=== PATIENT | male | born 1970 | race Caucasian/White ===

== ENCOUNTER 2020-06-12 13:52 | Inpatient (IN) | payer OTHER ==
[~2020-06-12] VITALS: Ht 182.9 cm; Wt 60.8 kg
[~2020-06-12 13:52] MED LIST: AIRDUO DIGIHAL1 EAC1 INH; ALBUTEROL1.25 MG/3 INH; ALBUTEROL2.5 MG/3 M INH; ATORVASTATIN CA40 MG PO; AUGMENTIN 875-1 EACH PO; AZITHROMYCIN500 MG PO; BROVANA15 MCG/2 M NEB; BUDESONIDE-FO10.2 G1 IH; CEFDINIR300 MG PO; CLEOCIN HCL300 MG PO; FLOVENT 220.1 GM/INH INH; FLUZONE QU60 MCG/015 IM; IPRAT-ALBUT 0.5-3 ML INH; IPRAT-ALBUT 0.5-3 ML NEB; LEVAQUIN500 MG PO; LEVAQUIN750 MG PO; LOPRESSOR 25 MG25 MG PO; MEDROL DOSEPAK 24 MG PO; MEDROL TAB 4 MG4 MG PO; MEDROL4 MG PO; MUPIROCIN30 GM TOP; NICOTINE PATCH1 EAC2 TD; OMNICEF 300 MG300 MG PO; PERCOCET 5/325 T1 EA PO; PREDNISONE 10 M10 MG GT; PREDNISONE 50 M50 MG PO; PREDNISONE20 MG PO; PROAIR DIGIHAL90 MCG INH; PROAIR HFA8.5 GM INH; PROVENTIL HFA6.7 GM INH; SPIRIVA HANDIH18 MCG INH; SPIRIVA RESPIMAT4 GM INH; SYMBICORT 160-1 INHA INH; TESSALON PERLE100 MG PO; TYLENOL EXTRA500 MG PO; ULTRAM50 MG PO; VENTOLIN HFA 66.7 GM INH; VENTOLIN/PROVE0.5 ML INH; VIBRAMYCIN 100100 MG PO; VIBRAMYCIN100 MG PO; ZITHROMAX250 MG PO; ZITHROMAX500 MG PO; ZOLOFT50 MG PO; [UNRECOGNIZED DRUG - OTHER] MC
[2020-06-12 15:30] LABS: BUN/CREATININE RATIO 10 (0-10)
[2020-06-12 15:57] LABS: HEMOGLOBIN 15.1 gm/dl (14.0-17.5); RED BLOOD COUNT 4.96 M/UL (4.20-5.50); WHITE BLOOD COUNT 12.7 K/UL (4.5-11.0)
[2020-06-13 02:23] LABS: RED BLOOD COUNT 4.93 M/UL (4.20-5.50)
[2020-06-13 02:28] LABS: WHITE BLOOD COUNT 8.9 K/UL (4.5-11.0)
[2020-06-13 03:13] LABS: BUN/CREATININE RATIO 14 (0-10)
--- NOTE | 2020-06-13 12:11 | NUR ---
SPOKE WITH MD SALAS. HUY TO SEND PATIENT TO MRI WITHOUT TELEMETRY
[2020-06-14 01:52] LABS: ACINETOBACTER BAUMANNII Not Detected (Negative); CANDIDA ALBICANS Not Detected (Negative); CANDIDA KRUSEI Not Detected (Negative); CANDIDA TROPICALIS Not Detected (Negative); ENTEROCOCCUS Not Detected (Negative); ESCHERICHIA COLI Not Detected (Negative); HAEMOPHILUS INFLUENZAE Not Detected (Negative); KLEBSIELLA OXYTOCA Not Detected (Negative); KLEBSIELLA PNEUMONIAE Not Detected (Negative); KPC-CARBAPENEM-RESISTANCE GENE Not Detected (Negative); PROTEUS Not Detected (Negative); PSEUDOMONAS AERUGINOSA Not Detected (Negative); SERRATIA MARCESANS Not Detected (Negative); STAPHYLOCOCCUS AUREUS Not Detected (Negative); STREP AGALACTIAE (GROUP B) Not Detected (Negative); STREP PYOGENES (GROUP A) Not Detected (Negative); STREPTOCOCCUS Not Detected (Negative); vanA/B (VANCOMYCIN RESIST GENE Not Detected (Negative)
[2020-06-14 01:55] LABS: STAPHYLOCOCCUS DETECTED (Negative); mecA (METHICILLIN RESIST GENE DETECTED (Negative)
[2020-06-14 03:44] LABS: HEMOGLOBIN 13.8 gm/dl (14.0-17.5); RED BLOOD COUNT 4.57 M/UL (4.20-5.50)
[2020-06-14 03:46] LABS: WHITE BLOOD COUNT 16.7 K/UL (4.5-11.0)
[2020-06-14 04:15] LABS: BUN/CREATININE RATIO 28 (0-10)
[2020-06-14] MEDS ORDERED: DOXYCYCLINE HY100 M2 PO (08:41)
[2020-06-14] MEDS ORDERED: PREDNISONE5 MG PO (08:41)
[2020-06-14] MEDS ORDERED: PROTONIX 40 MG40 M1 PO (08:41)
[2020-06-15] MEDS ORDERED: ATIVAN0.5 MG PO (10:03)
[2020-07-24] MEDS ORDERED: IPRAT-ALBUT 0.5-3 ML NEB (09:30)
[2020-07-24] MEDS ORDERED: BROVANA15 MCG/2 M NEB (09:30)
[2020-07-24] MEDS ORDERED: PREDNISONE 10 M10 MG PO (09:30)
[2020-07-24] MEDS ORDERED: SYMBICORT 160-1 INHA INH (14:26)
[2020-07-24] MEDS ORDERED: PROAIR HFA8.5 GM INH (14:26)
== END 2020-06-15 16:40 | disposition home or self-care (01) | DRG 189 ==
LOC: ER1 13:52 → PROG CARE 16:40 → CDU 16:40 → PROG CARE 22:27
PROVIDERS: Emergency Medicine; ADMIT Internal Medicine
PROC: B24BZZZ Ultrasonography of Heart with Aorta (ICD-10-PCS; principal; 2020-06-13)
DX: J96.01 Acute respiratory failure with hypoxia (principal); G93.41 Metabolic encephalopathy; J44.1 Chronic obstructive pulmonary disease with (acute) exacerbation; F17.200 Nicotine dependence, unspecified, uncomplicated; J96.02 Acute respiratory failure with hypercapnia; Z20.822 Contact with and (suspected) exposure to COVID-19; Z98.890 Other specified postprocedural states; Z82.5 Family history of asthma and other chronic lower respiratory diseases; Z88.8 Allergy status to other drugs, medicaments and biological substances
CPT/HCPCS: ECHO; 36415; 36600; 51702; 70450; 70551; 71045; 80053; 80307; 81001; 82140; 82550; 82553; 82803; 83605; 83690; 83735; 83874; 83880; 84100; 84439; 84443; 84484; 85025; 85610; 85730; 86140; 87040; 87077; 87086; 87150; 87186; 93005; 93306; 93880; 94640; 94660; 94664; 94760; 96374; 96375; 97161; 97165; 99285; C9113; G0480; J0456; J0696; J1650; J2185; J2930; J3370; J7070; U0002

== ENCOUNTER 2020-07-13 23:08 | Emergency (ER) | payer OTHER ==
[~2020-07-13 23:08] MED LIST changes: +ATIVAN0.5 MG PO; +DOXYCYCLINE HY100 M2 PO; +PREDNISONE5 MG PO; +PROTONIX 40 MG40 M1 PO
[2020-07-14 01:31] LABS: HEMOGLOBIN 14.3 gm/dl (14.0-17.5); RED BLOOD COUNT 4.78 M/UL (4.20-5.50); WHITE BLOOD COUNT 10.3 K/UL (4.5-11.0)
[2020-07-14 01:46] LABS: BUN/CREATININE RATIO 24 (0-10)
[2020-07-14] MEDS ORDERED: PREDNISONE 10 M10 MG PO (03:27)
== END 2020-07-14 04:30 | disposition home or self-care (01) ==
LOC: ER1 23:08
PROVIDERS: Physician Assistant
DX: J44.1 Chronic obstructive pulmonary disease with (acute) exacerbation (principal); Z88.6 Allergy status to analgesic agent; F17.210 Nicotine dependence, cigarettes, uncomplicated; Z20.822 Contact with and (suspected) exposure to COVID-19
CPT/HCPCS: 36600; 71045; 80053; 82550; 82553; 82803; 83605; 83874; 84484; 85025; 87040; 93005; 94760; 99285; U0002

== ENCOUNTER 2020-07-22 15:03 | Inpatient (IN) | payer OTHER ==
[~2020-07-22] VITALS: Ht 182.9 cm; Wt 64.4 kg
[~2020-07-22 15:03] MED LIST changes: +PREDNISONE 10 M10 MG PO
[2020-07-22 17:19] LABS: HEMOGLOBIN 15.1 gm/dl (14.0-17.5); RED BLOOD COUNT 4.85 M/UL (4.20-5.50); WHITE BLOOD COUNT 9.6 K/UL (4.5-11.0)
[2020-07-22 17:54] LABS: BUN/CREATININE RATIO 14 (0-10)
[2020-07-23 02:58] LABS: HEMOGLOBIN 13.5 gm/dl (14.0-17.5); RED BLOOD COUNT 4.42 M/UL (4.20-5.50)
[2020-07-23 03:00] LABS: WHITE BLOOD COUNT 6.7 K/UL (4.5-11.0)
[2020-07-23 03:19] LABS: BUN/CREATININE RATIO 16 (0-10)
[2020-07-23] MEDS ORDERED: SERTRALINE HCL50 MG PO (12:39)
[2020-07-23] MEDS ORDERED: SYMBICORT 160-1 INHA INH (12:44)
[2020-07-24] MEDS ORDERED: BROVANA15 MCG/2 M NEB (09:30)
[2020-07-24] MEDS ORDERED: PREDNISONE 10 M10 MG PO (09:30)
[2020-07-24] MEDS ORDERED: IPRAT-ALBUT 0.5-3 ML NEB (09:30)
[2020-07-24] MEDS ORDERED: PROAIR HFA8.5 GM INH (14:26)
[2020-07-24] MEDS ORDERED: SYMBICORT 160-1 INHA INH (14:26)
== END 2020-07-24 16:14 | disposition home or self-care (01) | DRG 189 ==
LOC: ER1 15:03 → M/S 18:43 → CDU 18:43 → M/S 19:37
PROVIDERS: Emergency Medicine; ADMIT Internal Medicine
DX: J96.21 Acute and chronic respiratory failure with hypoxia (principal); G93.41 Metabolic encephalopathy; J44.1 Chronic obstructive pulmonary disease with (acute) exacerbation; Z20.822 Contact with and (suspected) exposure to COVID-19; J96.22 Acute and chronic respiratory failure with hypercapnia; F17.210 Nicotine dependence, cigarettes, uncomplicated; Z99.81 Dependence on supplemental oxygen; Z87.81 Personal history of (healed) traumatic fracture; Z82.5 Family history of asthma and other chronic lower respiratory diseases; Z88.8 Allergy status to other drugs, medicaments and biological substances; Z88.6 Allergy status to analgesic agent
CPT/HCPCS: 36415; 36600; 71045; 80048; 80053; 81001; 82550; 82553; 82803; 83605; 83690; 83874; 83880; 84484; 85025; 87040; 93005; 94640; 94664; 94760; 96374; 96375; 99285; J0696; J1650; J2920; J2930; U0002

== ENCOUNTER 2020-08-06 08:57 | Inpatient (IN) | payer OTHER ==
[~2020-08-06] VITALS: Ht 182.9 cm; Wt 64.0 kg
[~2020-08-06 08:57] MED LIST changes: +SERTRALINE HCL50 MG PO
[2020-08-06 10:08] LABS: HEMOGLOBIN 16.1 gm/dl (14.0-17.5); RED BLOOD COUNT 5.27 M/UL (4.20-5.50); WHITE BLOOD COUNT 15.9 K/UL (4.5-11.0)
[2020-08-06 13:19] LABS: BUN/CREATININE RATIO 17 (0-10)
[2020-08-07 03:04] LABS: BORDETELLA PARAPERTUSSIS Not Detected (Not Detectd); BORDETELLA PERTUSSIS Not Detected (Not Detectd); CHLAMYDIA PNEUMONIAE Not Detected (Not Detectd); CORONAVIRUS HKU1 Not Detected (Not Detectd); CORONAVIRUS NL63 Not Detected (Not Detectd); CORONAVIRUS OC43 Not Detected (Not Detectd); CORONOAVIRUS 229E Not Detected (Not Detectd); HUMAN METAPNEUMOVIRUS Not Detected (Not Detectd); HUMAN RHINOVIRUS/ENTEROVIRUS Not Detected (Not Detectd); INFLUENZA A Not Detected (Not Detectd); INFLUENZA B Not Detected (Not Detectd); MYCOPLASMA PNEUMONIAE Not Detected (Not Detectd); PARAINFLUENZA VIRUS 1 Not Detected (Not Detectd); PARAINFLUENZA VIRUS 2 Not Detected (Not Detectd); PARAINFLUENZA VIRUS 3 Not Detected (Not Detectd); PARAINFLUENZA VIRUS 4 Not Detected (Not Detectd); RESPIRATORY SYNCYTIAL VIRUS Not Detected (Not Detectd)
[2020-08-07 03:14] LABS: HEMOGLOBIN 12.8 gm/dl (14.0-17.5); RED BLOOD COUNT 4.35 M/UL (4.20-5.50); WHITE BLOOD COUNT 10.7 K/UL (4.5-11.0)
[2020-08-07 03:45] LABS: BUN/CREATININE RATIO 23 (0-10)
[2020-08-07 04:03] LABS: SARS-CoV-2 NOT DETECTED (Not Detectd)
--- NOTE | 2020-08-07 12:49 | NUR ---
08/07/20 1250 MD AWARE OF BOTH LACTIC ACIDS BEING ELEVATED
[2020-08-08 10:06] LABS: HEMOGLOBIN 12.2 gm/dl (14.0-17.5); RED BLOOD COUNT 3.94 M/UL (4.20-5.50)
[2020-08-08 10:13] LABS: WHITE BLOOD COUNT 18.9 K/UL (4.5-11.0)
--- NOTE | 2020-08-08 10:19 | NUR ---
08/08/20 1015 AWARE OF LACTIC ACID RESULTS
[2020-08-08 10:54] LABS: BUN/CREATININE RATIO 16 (0-10)
--- NOTE | 2020-08-08 14:51 | NUR ---
08/08/20 1440 AWARE OF ABNORMAL LACTIC ACID
[2020-08-09 03:58] LABS: HEMOGLOBIN 12.6 gm/dl (14.0-17.5); RED BLOOD COUNT 4.07 M/UL (4.20-5.50)
[2020-08-09 04:20] LABS: BUN/CREATININE RATIO 16 (0-10)
[2020-08-09] MEDS ORDERED: IPRAT-ALBUT 0.5-3 ML NEB (10:13)
--- NOTE | 2020-08-09 17:54 | NUR ---
08/09/20 17:54 SPOKE WITH YOLI ON PHONE, EXPLAINED TO HER THAT RENZO WAS READY FOR DISCHARGE TO [facility] AND SOMEONE NEEDED TO PICK HIM UP. HE DOES HAVE A OXYGEN TANK THAT JUDSON RUBY BROUGHT FOR TRAVEL. SHE STATED SHE WAS IN [place]. SHE WOULD TRY TO GET A HOLD OF SOMEONE TO PICK HIM UP. Nisreen BROWN
--- NOTE | 2020-08-09 18:56 | NUR ---
Notified Dr. Garcia that patient stated he would not have a ride for tonight as his was in [place]. I asked him if he had any other options for a ride, but he stated his had to be home for him to go home. Dr. Garcia stated this was fine and he would re-evaluate the situation in the morning.
--- NOTE | 2020-08-10 16:28 | NUR ---
PT HAS STOOD AND WALKED AT BEDSIDE WITH NO ASSISTANCE. FAMILY HAS BEEN CONTACTED AND DAUGHTER (OLIVER) IS AT PT HOME WAITIN GHIS ARRIVAL. DAUGHTER HAS BEEN EDUCATED ABOUT THE IMPORTANCE OF BEING PRESENT TO HELP THE PT OUT OF THE CAB. DAUGHTER AND PT UNDERSTAND THE DANGERS AND HAVE AGREED TO PROCEED WITH THE PT LEAVING AND GOING HOME VIA [facility]. OXYGEN HAD BEEN DELIVERED AND GUY AND MD ARE AWARE.
== END 2020-08-10 18:03 | disposition home or self-care (01) | DRG 190 ==
LOC: ER1 08:57 → CDU 12:39 → M/S 12:39
PROVIDERS: Emergency Medicine; Physician Assistant; ADMIT Family Medicine
DX: J44.1 Chronic obstructive pulmonary disease with (acute) exacerbation (principal); J96.01 Acute respiratory failure with hypoxia; G93.49 Other encephalopathy; E87.2 Acidosis; D72.829 Elevated white blood cell count, unspecified; T38.0X5A Adverse effect of glucocorticoids and synthetic analogues, initial encounter; K42.9 Umbilical hernia without obstruction or gangrene; Z20.822 Contact with and (suspected) exposure to COVID-19; Z96.641 Presence of right artificial hip joint; Y92.89 Other specified places as the place of occurrence of the external cause; Z91.14 Patient's other noncompliance with medication regimen; Z88.6 Allergy status to analgesic agent; Z88.8 Allergy status to other drugs, medicaments and biological substances; Z72.0 Tobacco use; Z82.5 Family history of asthma and other chronic lower respiratory diseases
CPT/HCPCS: 0240U; 36415; 36600; 71045; 80048; 80053; 80202; 80307; 81001; 82140; 82550; 82553; 82803; 83605; 84484; 85025; 87040; 87086; 87633; 94640; 94664; 94760; 96374; 99285; J2543; J2920; J2930; J3370; J7030; J7070

== ENCOUNTER 2020-09-23 07:10 | Inpatient (IN) | payer OTHER ==
[~2020-09-23] VITALS: Ht 182.9 cm; Wt 77.1 kg
[2020-09-23 08:23] LABS: HEMOGLOBIN 13.9 gm/dl (14.0-17.5); RED BLOOD COUNT 4.42 M/UL (4.20-5.50)
[2020-09-23 08:51] LABS: BUN/CREATININE RATIO 15 (0-10)
[2020-09-23] MEDS ORDERED: TYLENOL325 MG PO (16:16)
[2020-09-24 06:12] LABS: HEMOGLOBIN 12.8 gm/dl (14.0-17.5); RED BLOOD COUNT 4.16 M/UL (4.20-5.50); WHITE BLOOD COUNT 10.1 K/UL (4.5-11.0)
[2020-09-24 06:31] LABS: BUN/CREATININE RATIO 19 (0-10)
[2020-09-24] MEDS ORDERED: IPRAT-ALBUT 0.5-3 ML NEB (10:14)
[2020-09-24] MEDS ORDERED: SYMBICORT 160-1 INHA INH (10:14)
[2020-09-24] MEDS ORDERED: BROVANA15 MCG/2 M NEB (10:14)
[2020-09-24] MEDS ORDERED: PROAIR HFA8.5 GM INH (10:14)
[2020-09-25 04:39] LABS: HEMOGLOBIN 12.4 gm/dl (14.0-17.5); RED BLOOD COUNT 4.12 M/UL (4.20-5.50); WHITE BLOOD COUNT 10.4 K/UL (4.5-11.0)
[2020-09-25 04:53] LABS: BUN/CREATININE RATIO 17 (0-10)
--- NOTE | 2020-09-25 21:03 | NUR ---
SPOKE WITH PT'S YOLI. NOTIFIED HER THAT PT HAD BEEN DISCHARGED FROM THE HOSPITAL. YOLI STATED THAT WHEN HER DAUGHTER GOT OFF WORK SHE WOULD COME TO THE HOSPITAL AND GET HIM.
== END 2020-09-25 22:09 | disposition home or self-care (01) | DRG 193 ==
LOC: ER1 07:10 → MED SURG 4 13:47 → CDU 13:47 → MED SURG 4 14:12
PROVIDERS: Emergency Medicine; Physician Assistant Medical; ADMIT Internal Medicine
DX: J18.9 Pneumonia, unspecified organism (principal); J96.22 Acute and chronic respiratory failure with hypercapnia; J96.21 Acute and chronic respiratory failure with hypoxia; J44.0 Chronic obstructive pulmonary disease with (acute) lower respiratory infection; J44.1 Chronic obstructive pulmonary disease with (acute) exacerbation; K42.9 Umbilical hernia without obstruction or gangrene; E87.6 Hypokalemia; F17.210 Nicotine dependence, cigarettes, uncomplicated; Z20.822 Contact with and (suspected) exposure to COVID-19; Z99.81 Dependence on supplemental oxygen; Z91.19 Patient's noncompliance with other medical treatment and regimen; Z88.6 Allergy status to analgesic agent; Z79.51 Long term (current) use of inhaled steroids; Z79.899 Other long term (current) drug therapy; Z82.5 Family history of asthma and other chronic lower respiratory diseases
CPT/HCPCS: 0240U; 36415; 36600; 71045; 80048; 80053; 82550; 82553; 82803; 83605; 83690; 83735; 84484; 85025; 85027; 87040; 94640; 94664; 94760; 96374; 99285; J0456; J0696; J7030

== ENCOUNTER 2020-10-13 22:10 | Emergency (ER) | payer OTHER ==
[~2020-10-13 22:10] MED LIST changes: +TYLENOL325 MG PO
[2020-10-14 04:31] LABS: HEMOGLOBIN 14.9 gm/dl (14.0-17.5); RED BLOOD COUNT 4.73 M/UL (4.20-5.50); WHITE BLOOD COUNT 9.3 K/UL (4.5-11.0)
[2020-10-14 05:05] LABS: BUN/CREATININE RATIO 10 (0-10)
[2020-10-14] MEDS ORDERED: AZITHROMYCIN250 MG PO (05:47)
== END 2020-10-14 11:00 | disposition home or self-care (01) ==
LOC: ER1 22:10
PROVIDERS: Family Medicine
DX: J44.0 Chronic obstructive pulmonary disease with (acute) lower respiratory infection (principal); J18.9 Pneumonia, unspecified organism; F17.200 Nicotine dependence, unspecified, uncomplicated; Z20.822 Contact with and (suspected) exposure to COVID-19
CPT/HCPCS: 71045; 80048; 85025; 93005; 96372; 99284; J0696; U0002

== ENCOUNTER 2020-11-28 11:31 | Emergency (ER) | payer OTHER ==
[~2020-11-28 11:31] MED LIST changes: +AZITHROMYCIN250 MG PO
[2020-11-28 12:29] LABS: HEMOGLOBIN 14.4 gm/dl (14.0-17.5); RED BLOOD COUNT 4.51 M/UL (4.20-5.50)
[2020-11-28 12:54] LABS: BUN/CREATININE RATIO 17 (0-10)
[2020-11-28] MEDS ORDERED: AZITHROMYCIN250 MG PO (16:45)
[2020-11-28] MEDS ORDERED: ALBUTEROL2.5 MG/3 M INH (16:45)
[2020-11-28] MEDS ORDERED: MEDROL DOSEPAK 24 MG PO (16:45)
== END 2020-11-28 17:50 | disposition home or self-care (01) ==
LOC: ER1 11:31
PROVIDERS: Emergency Medicine
DX: J44.1 Chronic obstructive pulmonary disease with (acute) exacerbation (principal); E87.6 Hypokalemia; F17.200 Nicotine dependence, unspecified, uncomplicated; Z88.5 Allergy status to narcotic agent; Z88.6 Allergy status to analgesic agent; Z20.822 Contact with and (suspected) exposure to COVID-19
CPT/HCPCS: 36600; 71045; 80053; 82550; 82553; 82803; 83605; 83874; 83880; 84484; 85025; 85379; 87040; 93005; 94640; 94664; 96374; 99285; J2930; U0002

== ENCOUNTER 2021-05-18 19:24 | Emergency (ER) | payer OTHER ==
[2021-05-18 20:36] LABS: HEMOGLOBIN 13.5 gm/dl (14.0-17.5); RED BLOOD COUNT 4.37 M/UL (4.20-5.50); WHITE BLOOD COUNT 10.9 K/UL (4.5-11.0)
[2021-05-18 21:07] LABS: BUN/CREATININE RATIO 22 (0-10)
[2021-05-18] MEDS ORDERED: PREDNISONE 50 M50 MG PO (21:36)
== END 2021-05-18 22:11 | disposition home or self-care (01) ==
LOC: ER1 19:24
PROVIDERS: Physician Assistant
DX: J44.9 Chronic obstructive pulmonary disease, unspecified (principal); F17.200 Nicotine dependence, unspecified, uncomplicated
CPT/HCPCS: 71045; 80053; 82550; 82553; 84484; 85025; 93005; 94664; 94760; 96374; 99285; J2930

== ENCOUNTER 2021-05-30 20:12 | Emergency (ER) | payer OTHER ==
[2021-05-30 21:13] LABS: HEMOGLOBIN 11.8 gm/dl (14.0-17.5); RED BLOOD COUNT 3.85 M/UL (4.20-5.50); WHITE BLOOD COUNT 10.2 K/UL (4.5-11.0)
[2021-05-30 21:34] LABS: BUN/CREATININE RATIO 15 (0-10)
[2021-05-30] MEDS ORDERED: DOXYCYCLINE MO100 MG PO (22:11)
== END 2021-05-31 05:32 | disposition home or self-care (01) ==
LOC: ER1 20:12
PROVIDERS: Emergency Medicine
DX: J44.0 Chronic obstructive pulmonary disease with (acute) lower respiratory infection (principal); J18.1 Lobar pneumonia, unspecified organism; R60.1 Generalized edema; F17.200 Nicotine dependence, unspecified, uncomplicated
CPT/HCPCS: 71045; 80053; 82550; 82553; 83880; 84484; 85025; 93005; 94664; 96365; 96375; 99285; J0696; J2930

== ENCOUNTER 2021-05-31 06:05 | Emergency (ER) | payer OTHER ==
[~2021-05-31 06:05] MED LIST changes: +DOXYCYCLINE MO100 MG PO
== END 2021-05-31 10:25 | disposition home or self-care (01) ==
LOC: ER1 06:05
DX: J44.9 Chronic obstructive pulmonary disease, unspecified (principal); F17.200 Nicotine dependence, unspecified, uncomplicated
CPT/HCPCS: 93005; 94664; 99285

== ENCOUNTER 2021-06-15 01:49 | Inpatient (IN) | payer OTHER ==
[~2021-06-15] VITALS: Ht 182.9 cm; Wt 72.6 kg
[2021-06-15 02:46] LABS: RED BLOOD COUNT 4.54 M/UL (4.20-5.50); WHITE BLOOD COUNT 12.6 K/UL (4.5-11.0)
[2021-06-15 03:05] LABS: BUN/CREATININE RATIO 18 (0-10)
[2021-06-15] MEDS ORDERED: DOXYCYCLINE HY100 MG PO (04:29)
[2021-06-15 06:45] LABS: BORDETELLA PARAPERTUSSIS Not Detected (Not Detectd); BORDETELLA PERTUSSIS Not Detected (Not Detectd); CHLAMYDIA PNEUMONIAE Not Detected (Not Detectd); CORONAVIRUS HKU1 Not Detected (Not Detectd); CORONAVIRUS NL63 Not Detected (Not Detectd); CORONAVIRUS OC43 Not Detected (Not Detectd); CORONOAVIRUS 229E Not Detected (Not Detectd); HUMAN METAPNEUMOVIRUS Not Detected (Not Detectd); HUMAN RHINOVIRUS/ENTEROVIRUS Not Detected (Not Detectd); INFLUENZA A Not Detected (Not Detectd); INFLUENZA B Not Detected (Not Detectd); MYCOPLASMA PNEUMONIAE Not Detected (Not Detectd); PARAINFLUENZA VIRUS 1 Not Detected (Not Detectd); PARAINFLUENZA VIRUS 2 Not Detected (Not Detectd); PARAINFLUENZA VIRUS 3 Not Detected (Not Detectd); PARAINFLUENZA VIRUS 4 Not Detected (Not Detectd); RESPIRATORY SYNCYTIAL VIRUS Not Detected (Not Detectd)
[2021-06-15] MEDS ORDERED: LORAZEPAM0.5 MG PO (09:25)
[2021-06-15] MEDS ORDERED: SERTRALINE HCL25 MG PO (09:25)
[2021-06-15] MEDS ORDERED: PREDNISONE10 MG PO (09:26)
[2021-06-15 09:52] LABS: SARS-CoV-2 NOT DETECTED (Not Detectd)
[2021-06-16 02:35] LABS: HEMOGLOBIN 12.3 gm/dl (14.0-17.5); WHITE BLOOD COUNT 12.6 K/UL (4.5-11.0)
[2021-06-16 02:48] LABS: RED BLOOD COUNT 4.03 M/UL (4.20-5.50)
[2021-06-16 03:34] LABS: BUN/CREATININE RATIO 24 (0-10)
[2021-06-17 04:03] LABS: BUN/CREATININE RATIO 24 (0-10)
[2021-06-18 04:33] LABS: BUN/CREATININE RATIO 21 (0-10)
[2021-06-18] MEDS ORDERED: OMNICEF 300 MG300 MG PO (08:59)
== END 2021-06-18 16:32 | disposition home health service (06) | DRG 189 ==
LOC: ER1 01:49 → CDU 06:00 → M/S 06:00 → CDU 06:00 → M/S 08:01
PROVIDERS: Internal Medicine; ADMIT Internal Medicine
DX: J96.21 Acute and chronic respiratory failure with hypoxia (principal); J44.1 Chronic obstructive pulmonary disease with (acute) exacerbation; K21.9 Gastro-esophageal reflux disease without esophagitis; Z20.822 Contact with and (suspected) exposure to COVID-19; F41.9 Anxiety disorder, unspecified; J96.22 Acute and chronic respiratory failure with hypercapnia; Z99.81 Dependence on supplemental oxygen; Z87.891 Personal history of nicotine dependence; Z88.8 Allergy status to other drugs, medicaments and biological substances; Z82.5 Family history of asthma and other chronic lower respiratory diseases; Z79.899 Other long term (current) drug therapy
CPT/HCPCS: 36415; 36600; 71045; 80048; 80053; 82550; 82553; 82803; 83036; 83735; 83880; 84439; 84443; 84484; 85025; 85379; 87633; 93005; 94640; 94664; 94760; 96374; 96375; 97161; 97530; 99285; J0456; J0696; J1100; J1650; J2920; J7030; U0002